=== PATIENT | male | born 1970 | race African-American/Black ===

== ENCOUNTER 2016-05-20 08:42 | Inpatient (IN) | payer OTHER ==
[~2016-05-20] VITALS: Ht 172.7 cm; Wt 85.1 kg
--- NOTE | 2016-05-20 08:48 | EMERGENCY ROOM VISIT NOTE ---
History Report prepared by Ayshaibe: Maggi Mendosa Under the Supervision of: Dr. Mello Hand M.D. First contact with patient: 08:43 Stated Complaint: CHEST PAIN History of Present Illness The patient is a 46 year old male who presents to the Emergency Room with complaints of persistent chest pain that started around 0430 this morning. He was brought to the ED via ALS from [facility], where he currently resides. The patient went to the [facility] around 0700 this morning and EKG changes were seen, so EMS was called. He rates his discomfort as a 7/10 and describes as feeling "crushing" in nature. The pain does not radiate anywhere. He was given 324 mg Aspirin and 2 sprays of Nitroglycerin in the field. He reports they have provided some relief. He denies any difficulty breathing or pain or swelling in his extremities. The patient has a history of a prior OH that occurred in 1993, and a previous DVT. No intervention was required for the OH. He denies any recent increased physical activity or exertion and reports he is non-smoker. Source of History: patient, EMS Onset: 0430 this morning Position: chest Symptom Intensity: 7/10 Quality: other ("crushing") Timing: other (persistent) Modifying Factors (Relieving): other (Aspirin, Nitroglycerin) Associated Symptoms: No SOB Review of Systems See HPI for pertinent positives & negatives. A total of 10 systems reviewed and were otherwise negative. Past Medical & Surgical Medical Problems: (1) Chest pain (2) DVT (deep venous thrombosis) (3) Hypertensive emergency (4) Myocardial infarction (5) Unstable angina Social History Alcohol Use: none Drug Use: none Marital Status: single Housing Status: other Occupation Status: unemployed Current/Historical Medications Scheduled Aspirin (Aspirin Ec), 81 MG PO QAM Citalopram Hydrobromide (Celexa), 20 MG PO HS Divalproex Sodium (Depakote Delay Rel), 500 MG PO BID Lisinopril (Prinivil), 40 MG PO QAM Trazodone Hcl (Trazodone), 100 MG PO HS Allergies Coded Allergies: No Known Allergies (Unverified , 05/20/16) Physical Exam Vital Signs Date Time Temp Pulse Resp B/P Pulse Ox O2 Delivery O2 Flow Rate FiO2 05/20/16 14:44 77 20 124/92 96 Room Air 1/21/17 13:08 66 18 154/77 05/20/16 12:44 62 20 145/111 98 Room Air 05/20/16 11:31 60 20 140/99 98 Room Air 05/20/16 11:08 56 18 162/104 97 Room Air 05/20/16 11:00 67 16 123/95 96 Room Air 05/20/16 10:57 62 18 148/104 98 Room Air 05/20/16 10:27 70 16 151/92 96 Room Air 05/20/16 09:48 76 18 178/118 96 Room Air 05/20/16 09:18 61 05/20/16 09:18 71 16 168/116 96 Room Air 05/20/16 08:47 99 05/20/16 08:47 36.9 92 18 192/129 100 Room Air 05/20/16 08:47 67 18 192/129 98 Room Air Physical Exam GENERAL: Patient is well appearing and appears to be in mild distress. HEENT: No acute trauma, normocephalic atraumatic, mucous membranes moist, no nasal congestion, no scleral icterus. NECK: No stridor, no adenopathy, no meningismus, trachea is midline. LUNGS: No dyspnea. Clear to auscultation and equal bilaterally. No wheeze, no rhonchi. HEART: Regular rate and rhythm. No murmurs, rubs, gallops appreciated. ABDOMEN: Soft, nontender, bowel sounds positive, no masses appreciated, no peritonitis. BACK: No midline tenderness, no CVA tenderness EXTREMITIES: Normal motion all extremities, no cyanosis, no edema. NEUROLOGIC: Alert and oriented, no acute motor or sensory deficits, no focal weakness, cranial nerves grossly intact. SKIN: No rash, no jaundice, no diaphoresis. Medical Decision & Procedures ER Provider Diagnostic Interpretation: This X-Ray was reviewed and interpreted by myself and the radiologist. SINGLE VIEW CHEST IMPRESSION: No acute cardiopulmonary abnormality. Electronically signed by: Esteban Reaves M.D. 05/20/2016 11:26 AM Laboratory Results 05/20/16 10:30 Red Blood Count 5.29, Mean Corpuscular Volume 88.5, Mean Corpuscular Hemoglobin 30.4, Mean Corpuscular Hemoglobin Concent 34.4, Mean Platelet Volume 12.4, Neutrophils (%) (Auto) 40.6, Lymphocytes (%) (Auto) 40.5, Monocytes (%) (Auto) 17.8, Eosinophils (%) (Auto) 1.1, Basophils (%) (Auto) 0.0, Neutrophils # (Auto ) 1.41, Lymphocytes # (Auto) 1.41, Monocytes # (Auto) 0.62, Eosinophils # (Auto ) 0.04, Basophils # (Auto) 0.00 05/20/16 09:25 05/20/16 10:30 Test 05/20/16 08:50 05/20/16 09:25 05/20/16 10:30 05/20/16 12:13 Creatine Kinase MB Ratio (0-3.0) Anion Gap 5.0 mmol/L (3-11) Est Creatinine Clear Calc Drug Dose 117.8 ml/min Estimated GFR () 121.4 Estimated GFR (Non- 104.8 BUN/Creatinine Ratio 9.9 (10-20) Calcium Level 9.0 mg/dl (8.5-10.1) Creatine Kinase MB 4.3 ng/ml (0.5-3.6) Troponin I < 0.015 ng/ml (0-0.045) White Blood Count 3.48 K/uL (4.8-10.8) Red Blood Count 5.29 M/uL (4.7-6.1) Hemoglobin 16.1 g/dL (14.0-18.0) Hematocrit 46.8 % (42-52) Mean Corpuscular Volume 88.5 fL (80-100) Mean Corpuscular Hemoglobin 30.4 pg (25-34) Mean Corpuscular Hemoglobin Concent 34.4 g/dl (32-36) Platelet Count 144 K/uL (130-400) Mean Platelet Volume 12.4 fL (7.4-10.4) Neutrophils (%) (Auto) 40.6 % Lymphocytes (%) (Auto) 40.5 % Monocytes (%) (Auto) 17.8 % Eosinophils (%) (Auto) 1.1 % Basophils (%) (Auto) 0.0 % Neutrophils # (Auto) 1.41 K/uL (1.4-6.5) Lymphocytes # (Auto) 1.41 K/uL (1.2-3.4) Monocytes # (Auto) 0.62 K/uL (0.11-0.59) Eosinophils # (Auto) 0.04 K/uL (0-0.5) Basophils # (Auto) 0.00 K/uL (0-0.2) RDW Standard Deviation 40.1 fL (36.4-46.3) RDW Coefficient of Variation 12.5 % (11.5-14.5) Immature Granulocyte % (Auto) 0.0 % Immature Granulocyte # (Auto) 0.00 K/uL (0.00-0.02) Prothrombin Time 12.0 SECONDS (9.0-12.0) Prothromb Time International Ratio 1.1 (0.9-1.1) Activated Partial Thromboplast Time 25.5 SECONDS (21.0-31.0) Partial Thromboplastin Ratio 1.0 D-Dimer 340 ug/L FEU (0-500) Total Creatine Kinase 492 U/L (39-308) Valproic Acid (Depakene) Level 38 mcg/ml (50-100) Laboratory results as reviewed by me. Medications Administered Medications (Trade) Dose Ordered Sig/Maegan Route Start Time Stop Time Status Last Admin Dose Admin Fentanyl Citrate 100 mcg 100 mcg NOW STAT IV 05/20/16 08:50 05/20/16 08:53 DC 05/20/16 10:41 100 MCG Sodium Chloride (Nss 1000ml) 1,000 ml @ 75 mls/hr [id number] STAT IV 05/20/16 08:50 05/20/16 22:09 05/20/16 10:58 75 MLS/HR Nitroglycerin (Nitrostat Tab) 0.4 mg Q5M PRN SL 05/20/16 09:00 06/19/16 08:59 05/20/16 09:29 0.4 MG Clonidine HCl (Catapres Tab) 0.2 mg NOW ONCE PO 05/20/16 10:30 05/20/16 10:31 DC 05/20/16 10:40 0.2 MG Nitroglycerin (Nitrostat Tab) 0.4 mg NOW STAT SL 05/20/16 12:50 05/20/16 13:05 DC 05/20/16 13:07 0.4 MG Heparin Sodium/ Dextrose (Heparin 25,000 Unit/500ml D5W) 25,000 unit STK-MED ONCE .ROUTE 05/20/16 13:47 05/20/16 13:49 DC 05/20/16 14:22 25,000 UNIT Heparin Sodium (Porcine) (Heparin Sq 5000 Unit/0.5ml) 5,000 unit STK-MED ONCE .ROUTE 05/20/16 13:48 05/20/16 13:49 DC 05/20/16 14:19 5,000 UNIT ECG Indication: chest pain Rate (beats per minute): 59 Rhythm: normal sinus (normal sinus rhythm) Findings: 1st degree AV block, T-wave inversion (Anterolateral), ST elevation ( mild ST elevation in V2, but poor baseline), no ectopy Comparison ECG Date: Anteriolateral T-wave inversions are still seen, and were previously seen on EKG from October 21, 2015. Does not meet STEMI criteria Change: 2nd EKG on 05/20/2016: Normal Sinus Rhythm, rate of 62, ST elevation in V1 continues, as well as T-wave inversions. Similar to previous EKG's and the patient still does not meet STEMI criteria. ED Course 0837: I discussed the patients case with [place]. Ramirez, [facility] [place] We discussed that the patient does not meet STEMI criteria. 0843: The patient was evaluated in room B1. A complete history and physical exam was performed. 0850: NSS 1000 ml @ 75 mls/hr IV, Fentanyl Citrate 100 mcg IV. 0900: Nitroglycerin 0.4 mg SL. 0905: I reassessed the patient. Lab is working on getting a secure IV. The patients chest pain is improving after receiving the Nitroglycerin. 0920: We attempted multiple peripheral IVs with ultrasound guidance without success. I discussed a central line versus a PICC line with the IV team. IV team feels they can place a PICC line. 0930: I reevaluated the patient. His pain is much improved. 1005: I reassessed the patient. IV team is placing a PICC line in the patient. He is feeling well. 1022: I reassessed the patient. He is feeling well. We will administer another Nitroglycerin as his blood pressure continues to elevate. 1030: Clonidine 0.2 mg PO. 1124: I discussed the patient's case with Dr. Valencia, [facility] Hospitalist. The patient will be further evaluated. Medical Decision Differential: Cardiac Ischemia (STEMI, NSTEMI, Unstable Angina, etc), Aortic Dissection, Arrhythmia, Pulmonary Embolism, Pneumonia, Pneumothorax, MSK, Infectious, Pericarditis/Myocarditis, Esophageal Rupture, Gastrointestinal, amongst other pathologies entertained. 46 yr old male arrives from care home with substernal pressure like chest pain. Notes history of OH 10 yrs ago though no stents nor real further info on this. Initial EKG with V2 mild ST elevation though does not meet STEMI criteria, as well as lateral T wave inversions. Alf sent over old EKGs from this summer which are essentially similar. Patient impossible to get peripheral line on, including difficulty even getting blood work. As BP quite elevated he was given several SLNTG with resolution of CP as well as improvement in BP. Clonidine given for further BP treatment. Patient with repeat EKG without changes. IV team at bedside who feel they can obtain PICC line which given the need for cardiac rule out and possibly further IV anti-hypertensives seems reasonable, especially given I feel large central line would be further risk to patient for cardiac rule out. Patient feeling better and in no distress. Initial Trop negative. Did have history years ago of DVT though no current blood thinners. With no further symptoms nor shob I felt that Dimer reasonable and with negative I do not feel he needs CT PE study. Consults Time Called: 0835 Consulting Physician: Dr. Ramirez [facility] [place] Returned Call: [phone] I discussed the patients case with Dr. Ramirez [facility] [place]. We discussed that the patient does not meet STEMI criteria. Additional Consults: Time Called: 1120 Consulted Physician: Dr. Valencia [facility] Hospitalist Returned Call: 1120 Additional Comments: I discussed the patient's case with Dr. Valencia, [facility] Hospitalist. The patient will be further evaluated. Impression Primary Impression: Hypertensive urgency Additional Impression: Substernal chest pain Scribe Attestation The scribe's documentation has been prepared under my direction and personally reviewed by me in its entirety. I confirm that the note above accurately reflects all work, treatment, procedures, and medical decision making performed by me. Departure Information Dispostion Being Evaluated By Hospitalist Problem Qualifiers
[2016-05-20] MEDS ORDERED: SODIUM CHLORIDE 0.9% 1000ML 1,000 ML IV STA (08:50)
[2016-05-20] MEDS ORDERED: FENTANYL CITRATE INJ 50 MCG/1 ML 2 ML VIAL IV STA (08:50)
[2016-05-20] MEDS ORDERED: NITROGLYCERIN 0.4 MG SL PER TAB CHARGE SL PRN (09:00)
[2016-05-20] MEDS ORDERED: TRAZ50TA35 PO (09:12)
[2016-05-20] MEDS ORDERED: ASPI81TA28 PO (09:12)
[2016-05-20] MEDS ORDERED: DIVA500T5 PO (09:12)
[2016-05-20] MEDS ORDERED: LISI40TA PO (09:12)
[2016-05-20] MEDS ORDERED: CITA20TA9 PO (09:12)
[2016-05-20 10:00] LABS: BLOOD UREA NITROGEN 8 mg/dl (7-18); BUN/CREATININE RATIO 9.9 (10-20); CARBON DIOXIDE 29 mmol/L (21-32); CHLORIDE 105 mmol/L (98-107); CREATININE 0.83 mg/dl (0.60-1.40); GLUCOSE 93 mg/dl (70-99); SODIUM 139 mmol/L (136-145)
[2016-05-20] MEDS ORDERED: CLONIDINE HCL 0.1 MG TAB PO ONE (10:30)
[2016-05-20 11:07] LABS: COMPLETE YES; EOS % 1.1 %; HEMATOCRIT 46.8 % (42-52); LYMPH % 40.5 %; LYMPH ABS # 1.41 K/uL (1.2-3.4); MEAN CELL VOLUME 88.5 fL (80-100); MEAN CORPUSCULAR HEMOGLOBIN 30.4 pg (25-34); MEAN CORPUSCULAR HGB CONC 34.4 g/dl (32-36); MEAN PLATELET VOLUME 12.4 fL (7.4-10.4); MONO % 17.8 %; NEUT % 40.6 %; PLATELET COUNT 144 K/uL (130-400); RED BLOOD COUNT 5.29 M/uL (4.7-6.1); WHITE BLOOD COUNT 3.48 K/uL (4.8-10.8)
[2016-05-20 11:09] LABS: POTASSIUM 3.9 mmol/L (3.5-5.1)
--- NOTE | 2016-05-20 11:28 | DIAGNOSTIC IMAGING REPORT ---
SINGLE VIEW CHEST CLINICAL HISTORY: Atypical chest pain. FINDINGS: An AP, portable, upright chest radiograph is obtained. No prior studies are available for comparison at the time of dictation. The examination is degraded by portable technique and mild motion artifact. A left PICC line is in place. The tip projects over the cavoatrial junction. The heart is top normal for projection. The mediastinal contour is within normal limits. The lungs and pleural spaces are clear. No pneumothorax is seen. The bony thorax is grossly intact. Surgical clips project over the right axilla. IMPRESSION: No acute cardiopulmonary abnormality. Electronically signed by: Esteban Reaves M.D. 05/20/2016 11:26 AM Dictated Date/Time: 05/20/2016 11:25 AM
[2016-05-20] MEDS ORDERED: NITROGLYCERIN 0.4 MG SL PER TAB CHARGE SL STA (12:50)
[2016-05-20] MEDS ORDERED: NITROGLYCERIN OINT 2% 1GM PACKET EXT SCH (13:00)
[2016-05-20] MEDS ORDERED: POLYETHYLENE (MIRALAX) 17 GM PACK PO PRN (13:30)
[2016-05-20] MEDS ORDERED: ONDANSETRON INJ 2 MG/ML 2 ML VIAL IV PRN (13:30)
[2016-05-20] MEDS ORDERED: MAGNESIUM HYDROXIDE SUSP 30 ML UDC PO PRN (13:30)
[2016-05-20] MEDS ORDERED: ALUMINUM/MAGNESIUM/SIMETH (MAALOX MAX) 30 ML UDC PO PRN (13:30)
[2016-05-20] MEDS ORDERED: ACETAMINOPHEN 325 MG TAB PO PRN (13:30)
[2016-05-20] MEDS ORDERED: HEPARIN 25000 UNIT/500 ML D5W ONE (13:47)
[2016-05-20] MEDS ORDERED: HEPARIN SOD 5000 UNIT/0.5 ML CARP ONE (13:48)
[2016-05-20] MEDS ORDERED: NITROGLYCERIN OINT 2% 1GM PACKET EXT PRN (14:00)
[2016-05-20] MEDS ORDERED: HEPARIN BOLUS IV ONE (14:00)
[2016-05-20] MEDS ORDERED: ATORVASTATIN 40 MG TAB PO ONE (14:00)
[2016-05-20 14:10] LABS: INR 1.1 (0.9-1.1)
[2016-05-20] MEDS ORDERED: HydrALAZINE HCL 20 MG/ML VIAL IV. PRN (14:15)
[2016-05-20] MEDS: HEPARIN 25,000 UNIT/500ML D5W 500 ML IV PRN (14:23)
--- NOTE | 2016-05-20 14:37 | History and Physical ---
History & Physical Date & Time of Service: May 20, 2016 at 13:44 Chief Complaint: Chest Pain Primary Care Physician: Alesia ORDONEZ History of Present Illness Source: patient, hospital records, other ([facility] records) This is a 46 y/o male with a history of CT in 1993, HTN, seizures, anxiety/ depression, insomnia, and h/o LLE DVT in 1991 who presented to the ED on 05/20 with chest pain. The patient is an inmate at [facility]. He states that he woke up around 4:30 this morning with a sharp, 8/10 chest pain located on the left side of his chest. The pain did not radiate anywhere. He did notice tingling in his left hand, and he complains of fatigue but denies any other associated symptoms. The patient was evaluated at the [facility] which revealed EKG changes , prompting him to be taken to the ED. The patient received ASA 324 mg PO and 2 sprays of nitro prior to arrival, which did provide some relief. He currently rates his pain a 5/10. The patient denies fevers, chills, sweats, palpitations, claudication, wheezing, shortness of breath, nausea, vomiting, abdominal pain, dysuria, hematuria, urinary retention, paralysis, and weakness. Past Medical/Surgical History HTN Anxiety/depression Insomnia H/o CT 1993 H/o LLE DVT 1991 Family History Asthma Diabetes mellitus Heart disease Social History Smoking Status: Never Smoker Smokeless Tobacco Use: No Alcohol Use: none Drug Use: none Marital Status: Housing status: other ([facility]) Occupational Status: other (inmate) Allergies Coded Allergies: No Known Allergies (Unverified , 05/20/16) Home Medications Scheduled Aspirin (Aspirin Ec), 81 MG PO QAM Citalopram Hydrobromide (Celexa), 20 MG PO HS Divalproex Sodium (Depakote Delay Rel), 500 MG PO BID Lisinopril (Prinivil), 40 MG PO QAM Trazodone Hcl (Trazodone), 100 MG PO HS Review of Systems Constitutional: + fatigue, No chills, No fever, No sweats, No weakness Eyes: No diplopia, No eye pain, No worsening of vision ENT: No hearing loss, No sore throat, No trouble swallowing Respiratory: + cough (mild, non-productive), No shortness of breath, No wheezing Cardiovascular: + chest pain (initially 8/10, improved with nitro, currently pain free), No claudication, No palpitations Abdomen: No nausea, No pain, No vomiting Musculoskeletal: No joint pain, No muscle pain, No swelling Genitourinary - Male: No dysuria, No hematuria, No urinary retention Neurologic: + numbness/tingling (L hand, resolved), No paralysis, No weakness Integumentary: No color change, No itch, No rash Physical Exam Vital Signs Date Time Temp Pulse Resp B/P Pulse Ox O2 Delivery O2 Flow Rate FiO2 05/20/16 13:08 66 18 154/77 05/20/16 12:44 62 20 145/111 98 Room Air 05/20/16 11:31 60 20 140/99 98 Room Air 05/20/16 11:08 56 18 162/104 97 Room Air 05/20/16 11:00 67 16 123/95 96 Room Air 05/20/16 10:57 62 18 148/104 98 Room Air 05/20/16 10:27 70 16 151/92 96 Room Air 05/20/16 09:48 76 18 178/118 96 Room Air 05/20/16 09:18 61 05/20/16 09:18 71 16 168/116 96 Room Air 05/20/16 08:47 99 05/20/16 08:47 36.9 92 18 192/129 100 Room Air 05/20/16 08:47 67 18 192/129 98 Room Air General Appearance: WD/WN, no apparent distress Head: normocephalic, atraumatic Eyes: normal inspection, PERRL, EOMI, + pertinent finding (sclerae bloodshot) ENT: normal ENT inspection, hearing grossly normal, pharynx normal Neck: supple, no JVD, trachea midline Respiratory/Chest: lungs clear, normal breath sounds, no respiratory distress Cardiovascular: regular rate, rhythm, no gallop, no murmur Abdomen/GI: normal bowel sounds, non tender, soft Extremities/Musculoskelatal: normal inspection, no calf tenderness, no pedal edema Neurologic/Psych: alert, normal mood/affect, oriented x 3 Skin: normal color, warm/dry, no rash Diagnostics Laboratory Results Results Past 24 Hours Test 05/20/16 08:50 05/20/16 09:25 05/20/16 10:30 05/20/16 12:13 Range/Units Creatine Kinase MB Ratio 0-3.0 D-Dimer 340 0-500 ug/L FEU Sodium Level 139 136-145 mmol/L Potassium Level 3.9 3.5-5.1 mmol/L Chloride Level 105 98-107 mmol/L Carbon Dioxide Level 29 21-32 mmol/L Anion Gap 5.0 3-11 mmol/L Blood Urea Nitrogen 8 7-18 mg/dl Creatinine 0.83 0.60-1.40 mg/dl Est Creatinine Clear Calc Drug Dose 117.8 ml/min Estimated GFR () 121.4 Estimated GFR (Non- 104.8 BUN/Creatinine Ratio 9.9 10-20 Random Glucose 93 70-99 mg/dl Calcium Level 9.0 8.5-10.1 mg/dl Total Creatine Kinase 492 39-308 U/L Creatine Kinase MB 4.3 0.5-3.6 ng/ml Troponin I < 0.015 0-0.045 ng/ml White Blood Count 3.48 4.8-10.8 K/uL Red Blood Count 5.29 4.7-6.1 M/uL Hemoglobin 16.1 14.0-18.0 g/dL Hematocrit 46.8 42-52 % Mean Corpuscular Volume 88.5 80-100 fL Mean Corpuscular Hemoglobin 30.4 25-34 pg Mean Corpuscular Hemoglobin Concent 34.4 32-36 g/dl Platelet Count 144 130-400 K/uL Mean Platelet Volume 12.4 7.4-10.4 fL Neutrophils (%) (Auto) 40.6 % Lymphocytes (%) (Auto) 40.5 % Monocytes (%) (Auto) 17.8 % Eosinophils (%) (Auto) 1.1 % Basophils (%) (Auto) 0.0 % Neutrophils # (Auto) 1.41 1.4-6.5 K/uL Lymphocytes # (Auto) 1.41 1.2-3.4 K/uL Monocytes # (Auto) 0.62 0.11-0.59 K/uL Eosinophils # (Auto) 0.04 0-0.5 K/uL Basophils # (Auto) 0.00 0-0.2 K/uL RDW Standard Deviation 40.1 36.4-46.3 fL RDW Coefficient of Variation 12.5 11.5-14.5 % Immature Granulocyte % (Auto) 0.0 % Immature Granulocyte # (Auto) 0.00 0.00-0.02 K/uL Valproic Acid (Depakene) Level 38 50-100 mcg/ml Test 05/20/16 13:24 Range/Units Diagnostic Radiology Reviewed the following studies and agree with interpretation as follows: Patient Name: NEFTALY MCKEON [id number] Unit Number: [id number] Dictated: 05/20/161124 Transcribed: 05/20/161124 EV Printed Date/Time: [~ rep prt dt]/[~ rep prt tm] [~ rep ct labl] - [~ rep ct ivnm] [facility] [place] [address] Dictated: 05/20/161124 Transcribed: 05/20/161124 EV Printed Date/Time: [~ rep prt dt]/[~ rep prt tm] [~ rep ct labl] - [~ rep ct ivnm] Patient: NEFTALY MCKEON [id number] Address1: [facility] Rec: [id number] Address2: Acct ID: [id number] [facility] Zip: [place] [address] Date: 1970 Sex: M Room/Bed: Ref Phy: [facility] SC: IESHA Att Phy: Report #: [id number] Cady Phy: [facility] Test: [id number] Admit Phy: Environmental Planner: DEANNE Interpreting Phy: Esteban Reaves M.D. Diagnosis: CHEST PAIN Ordering Phy: Mello Hand M.D. Service Date: 05/20/16 Admit Date: 05/20/16 MNE: [id number] CONF: DICTATED BY: Esteban Reaves M.D.]] CC: Mello Hand M.D. [facility] Endcc: [~ rep ct add3]] SINGLE VIEW CHEST CLINICAL HISTORY: Atypical chest pain. FINDINGS: An AP, portable, upright chest radiograph is obtained. No prior studies are available for comparison at the time of dictation. The examination is degraded by portable technique and mild motion artifact. A left PICC line is in place. The tip projects over the cavoatrial junction. The heart is top normal for projection. The mediastinal contour is within normal limits. The lungs and pleural spaces are clear. No pneumothorax is seen. The bony thorax is grossly intact. Surgical clips project over the right axilla. IMPRESSION: No acute cardiopulmonary abnormality. Electronically signed by: Esteban Reaves M.D. 05/20/2016 11:26 AM Dictated Date/Time: 05/20/2016 11:25 AM The status of this report is Signed. Draft = Not yet reviewed or approved by Radiologist. Signed = Reviewed and approved by Radiologist. <AttendingPhy></AttendingPhy> <FamilyPhy>Alesia ORDONEZ</FamilyPhy> <PrimaryPhy> Alesia ORDONEZ</PrimaryPhy> <UnitNumber>[id number]</UnitNumber> <VisitNumber> [id number]</VisitNumber> <PatientName>NEFTALY MCKEON [id number]</PatientName> < DateOfBirth>1970</DateOfBirth> <Location>C.EDB</Location> <ServiceDate></ServiceDate> <MNE>ESINDI</MNE> <OrderingPhy>Mello Hand M.D.</ OrderingPhy> <OrderingPhyMNE>f rep ord dr clancy</OrderingPhyMNE> <DictatingPhyMNE> f rep dict dr clancy</DictatingPhyMNE> <CCListMNE>f rep ct julieth</CCListMNE> < AdmittingPhyMNE>f pt admit dr clancy</AdmittingPhyMNE> <AttendingPhyMNE>f pt attend dr clancy</AttendingPhyMNE> <ConsultingPhyMNE>f pt consult dr clancy</ConsultingPhyMNE> <FamilyPhyMNE>f pt fam dr clancy</FamilyPhyMNE> <OtherPhyMNE>f pt other dr clancy</OtherPhyMNE> < PrimaryPhyMNE>f pt prim care dr clancy</PrimaryPhyMNE> <ReferringPhyMNE>f pt referring dr clancy</ReferringPhyMNE> EKG Reviewed EKG and agree with interpretation as follows: EKG 08:44--59 bpm, sinus bradycardia with 1st degree AV block, anterolateral and inferior T wave inversions, mild ST elevations V1 and V2. Does not meet STEMI criteria EKG 10:51--62 bpm, sinus rhythm with 1st degree AV block, anterolateral and inferior T wave inversions, ST elevation in V2. Does not meet STEMI criteria EKG 13:24--58 bpm, sinus bradycardia, anterolateral and inferior T wave inversions Impression Assessment and Plan 46 y/o male with a history of CT in 1993, HTN, seizures, anxiety/depression, insomnia, and h/o LLE DVT in 1991 who presented to the ED on 05/20 with chest pain. C/o 8/10 sharp left chest pain and left hand tingling. Improved to 5/10 with ASA and nitro. CXR no acute disease. EKGs show T wave inversions in inferior, anterior and lateral leads, which are worse or changed from previous EKG in September 2015. First troponin negative but CK and CKMB elevated. ED physician consulted with Dr. Ramirez of cardiology and agreed that pt does not meet criteria for STEMI. BP upon arrival 192/129. Responded well to PO clonidine in ER. Unstable angina, h/o CT in 1993--Pt states he thinks he had a cardiac cath in 1995 at [facility]. Will request medical records. -Admit to telemetry -Cardiology consulted, appreciate recs -Echocardiogram ordered -Repeat EKG now shows no ST elevations. T wave inversions unchanged. -POC troponin now stat negative at 0.02 -Nitroglycerin 0.4 mg PO SL x 1 stat. Pt responded well, now pain free. -Nitropaste 1 inch EXT q6h scheduled -Low dose heparin drip with bolus -PT/INR, PTT now -Start Lipitor 40 mg PO qam, 1 dose now -Continue ASA 81 mg PO qd -Pt has been bradycardic, no beta ria at this time -Trend cardiac enzymes q8h x 3 -Repeat EKG q am and with chest pain -Fasting lipid panel tomorrow am Hypertensive emergency--BP 192/129 upon arrival with chest pain -Given clonidine 0.2 mg PO x 1 in ED, last recorded BP 154/77 -Continue lisinopril 40 mg PO qd -Cover with hydralazine 10 mg IV q6h prn SBP >180 Seizures--stable. Pt. states he hasn't had a seizure in 10 years -Valproic acid level low at 38, however pt has been stable and this may be his normal level -Continue Depakote 500 mg PO BID Anxiety/depression -Continue Celexa 20 mg PO qd Insomnia -Continue trazodone 100 mg PO qhs GI prophylaxis -Maalox Max 15 mL PO q4h prn dyspepsia -Milk of magnesia 30 mL PO q6h prn constipation -Miralax 17 gm PO qd prn constipation -Zofran 4 mg IV q6h prn nausea DVT prophylaxis -Heparin drip -EILEEN hall and SCDs Code Status -Level I, FULL RESUSCITATION STATUS Level of Care Telemetry Resuscitation Status FULL RESUSCITATION VTE Prophylaxis VTE Risk Assessment Done? Y/N: Yes Risk Level: High Given or contraindicated: Other Anticoagulation (low dose heparin drip), T.E.D. Stockings, SCD's Note Attending Admission Note & Attestation: Pt seen/examined, chart reviewed, and care plan d/w NACHO Allred. I agree with the kinney components of her admission documentation. 46yo male with intellectual disability, h/o CAD with ?CT in the mid - dx at [facility], HTN, hyperlipidemia, seizures - who presented with acute onset of left sided chest pain this am that radiated to the left arm. Seen initially in the infirmary at the senior living in which he resides; EKG showed ST changes and thus he was given asa/nitro. Sent to [facility]. Had ongoing pain upon arrival here and was given additional SL nitro x 1 with partial relief. BP markedly elevated at presentation and was medicated for such. Just prior to my assessment he had had continued pain and was given another SL nitro; this finally relieved his pain. Pt reports his symptoms remind him of when he was hospitalized in the mid with cardiac problems. He denies any recent exertional chest pain or sob at the senior living. PMH, PSH, allergies, meds, sochx, famhx, ros - reviewed vitals - BPs improving HR, o2 sats, RR nl gen - AA male in NAD neck - no JVD heart - RRR, s1, s2 chest - no reproducible chest wall pain lungs - CTA b/l abd - soft, NT, ND, BS+ ext - no edema labs - initial CPK mildly elevated troponin negative CBC, BMP nl 1st EKG - my reading - NSR, T wave inversions V3-V6; also with ST segment J- point elevation V2 only; ST segment depression 1 and AVL 2nd EKG - my reading - continued V3-V6 T wave inversions A/P: 1. ? history of CAD, now with chest pain 2. ? unstable angina 3. hypertensive emergency 4. abnormal EKGs 5. mildly elevated CPK 6. h/o DVT but doubt his symptoms are due to new PE * in light of his history, symptoms, EKG findings - will Rx as unstable angina with heparin drip, topical nitrates, etc * echo to assess wall motion, EF, etc * cardiology consultation * cont asa, SANDEEP, statin; lipids in AM; HR already upper 50s and not sure he would tolerate even low-dose beta ria * serial cardiac enzymes * resume all outpatient BP meds for HTN * telemetry * if chest pain recurs in context of +troponins would likely need urgent cath total time 70 minutes Raz Rodriguez MD
[2016-05-20 16:32] VITALS: BP 120/85; PULSE 60; TEMP 36.9; O2SAT 97
[2016-05-20 16:44] VITALS: Ht 172.7 cm; Wt 85.1 kg
[2016-05-20] MEDS: NITROGLYCERIN OINT 2% 1GM PACKET EXT SCH ×2 (17:17→23:54)
[2016-05-20 18:36] LABS: CKMB/CK RATIO 0.3 (0-3.0)
[2016-05-20 19:33] VITALS: BP 143/64; PULSE 65; TEMP 36.8; O2SAT 95
[2016-05-20] MEDS: TRAZODONE HCL 100 MG TAB PO SCH (21:09)
[2016-05-20] MEDS: CITALOPRAM 20 MG TAB PO SCH (21:09)
[2016-05-20] MEDS: DIVALPROEX SODIUM 500 MG DELAY RELEASE TAB PO SCH (21:10)
[2016-05-20 21:50] LABS: PARTIAL THROMBOPLASTIN RATIO 2.6
[2016-05-20 23:18] VITALS: BP 107/62; PULSE 77; TEMP 36.6; O2SAT 92
[2016-05-21] VITALS (8 sets, daily range): BP systolic 111–150; BP diastolic 78–95; PULSE 55–94; TEMP 36.6–37; O2SAT 94–97
[2016-05-21 02:43] LABS: CKMB/CK RATIO 0.3 (0-3.0)
[2016-05-21] MEDS: NITROGLYCERIN OINT 2% 1GM PACKET EXT SCH ×4 (05:53→23:39)
[2016-05-21] MEDS ORDERED: MoRPHine SULFATE 2 MG/ML CARP IV STA (06:06)
[2016-05-21] MEDS ORDERED: MoRPHine SULFATE 2 MG/ML CARP ONE (06:07)
[2016-05-21 06:52] LABS: HEMATOCRIT 43.6 % (42-52); MEAN CELL VOLUME 89.7 fL (80-100); MEAN CORPUSCULAR HEMOGLOBIN 31.1 pg (25-34); MEAN CORPUSCULAR HGB CONC 34.6 g/dl (32-36); MEAN PLATELET VOLUME 12.7 fL (7.4-10.4); PLATELET COUNT 136 K/uL (130-400); RED BLOOD COUNT 4.86 M/uL (4.7-6.1)
[2016-05-21 07:07] LABS: PARTIAL THROMBOPLASTIN RATIO 2.2
[2016-05-21 07:15] LABS: BUN/CREATININE RATIO 10.9 (10-20); CALCIUM 8.4 mg/dl (8.5-10.1); CREATININE 1.1 mg/dl (0.60-1.40); POTASSIUM 3.9 mmol/L (3.5-5.1)
[2016-05-21] MEDS: LISINOPRIL 40 MG TAB PO SCH (08:07)
[2016-05-21] MEDS: DIVALPROEX SODIUM 500 MG DELAY RELEASE TAB PO SCH ×2 (08:07→20:56)
[2016-05-21] MEDS: ASPIRIN 81 MG ECTAB PO SCH (08:08)
[2016-05-21] MEDS ORDERED: ATORVASTATIN 40 MG TAB PO SCH ×2 (09:00)
--- NOTE | 2016-05-21 12:57 | ECHOCARDIOGRAM REPORT ---
*NOTICE TO RECEIVING LIBERTARIAN AGENCY This information is strictly Confidential and protected under [place] law. [place] law prohibits you from making any further disclosure of this information unless further disclosure is expressly permitted by the written consent of the person to whom it pertains or is authorized by law. A general authorization for the release of medical or other information is not sufficient for this purpose. Hospital accepts no responsibility if the information is made available to any other person, INCLUDING THE PATIENT. Interpretation Summary * Name: NEFTALY MCKEON [id number] Study Date: 05/21/2016 09:22 AM BP: 138/78 mmHg * Patient Location: [facility] HR: 67 * : 1970 (M/d/yyyy) Gender: Male Height: 68 in * Age: 46 yrs Ethnicity: AA Weight: 190 lb * Ordering Physician: Inessa Allred * Referring Physician: Alesia ORDONEZ * Performed By: Minoo Randhawa * * Reason For Study: CHEST PAIN, EKG CHANGES * BSA: 2.0 m2 * -- Conclusions -- * 1. Normal LV size. Moderate concentric LVH. * 2. Normal LV systolic function. LVEF 60-65%. No regional wall motion abnormalities. * 3. Normal RV size and function. * 4. No significant valvular pathology. * 5. Grade 1 diastolic dysfunction. * 6. No prior studies for comparison. Procedure Details * A complete two-dimensional transthoracic echocardiogram was performed (2D, M-mode, Doppler and color flow Doppler). Left Ventricle * The left ventricle is grossly normal size. * There is moderate concentric left ventricular hypertrophy. * Ejection Fraction = 60-65%. Right Ventricle * The right ventricle is grossly normal size. * The right ventricular systolic function is normal. Atria * The left atrial size is normal. * Normal pulmonary vein inflow * Right atrial size is normal. * No ASD detected; PFO is not assessed. Mitral Valve * The mitral valve is grossly normal. * The mitral valve leaflets appear thickened, but open well. * There is no mitral valve stenosis. * There is trace mitral regurgitation. Tricuspid Valve * The tricuspid valve is not well visualized, but is grossly normal. * No significant tricuspid stenosis. * There is trace tricuspid regurgitation. Aortic Valve * The aortic valve opens well. * The aortic valve is trileaflet. * No hemodynamically significant valvular aortic stenosis. * There is no significant aortic regurgitation. Pulmonic Valve * The pulmonic valve is not well seen, but is grossly normal. * Pulmonic stenosis is absent. * Mild pulmonic valvular regurgitation. Great Vessels * The aortic root and proximal ascending aorta are normal sized. * No Doppler or imaging evidence of an aortic coarctation. Pericardium/Pleural * There is no pericardial effusion. Great Vessels * Normal inferior vena cava diameter and respiratory variation suggests normal central venous pressure. Left Ventricular Diastolic Function * Grade I diastolic dysfunction, (abnormal relaxation pattern). MMode 2D Measurements and Calculations IVSd 1.3 cm IVSs 2.1 cm LVIDd 3.9 cm LVIDs 2.4 cm LVPWd 1.4 cm LVPWs 2.1 cm IVS/LVPW 0.96 FS 37.7 % EDV(Teich) 64.0 ml ESV(Teich) 20.1 ml EF(Teich) 68.5 % EDV(cubed) 57.2 ml ESV(cubed) 13.8 ml EF(cubed) 75.9 % % IVS thick 60.4 % % LVPW thick 51.9 % LV mass(C)d 188.9 grams LV mass(C)dI 94.5 grams/m\S\2 LV mass(C)s 232.5 grams LV mass(C)sI 116.3 grams/m\S\2 SV(Teich) 43.9 ml SI(Teich) 22.0 ml/m\S\2 SV(cubed) 43.4 ml SI(cubed) 21.7 ml/m\S\2 ACS 1.4 cm LA dimension 3.5 cm asc Aorta Diam 3.5 cm LVOT diam 1.8 cm LVOT area 2.5 cm\S\2 Doppler Measurements and Calculations MV E max larisa 62.6 cm/sec MV A max larisa 75.5 cm/sec MV E/A 0.83 MV dec time 0.23 sec LV V1 max PG 3.5 mmHg LV V1 mean PG 2.0 mmHg LV V1 max 93.0 cm/sec LV V1 mean 64.6 cm/sec LV V1 VTI 18.0 cm SV(LVOT) 44.9 ml SI(LVOT) 22.5 ml/m\S\2 PA V2 max 101.6 cm/sec PA max PG 4.9 mmHg PI end-d larisa 91.2 cm/sec
[2016-05-21] MEDS: HEPARIN 25,000 UNIT/500ML D5W 500 ML IV PRN (15:55)
[2016-05-21] MEDS ORDERED: KETOROLAC TROMETHAMINE 30 MG/ML VIAL IV STA (16:30)
[2016-05-21] MEDS ORDERED: OPTIRAY 320 IV PRN (18:30)
--- NOTE | 2016-05-21 18:49 | DIAGNOSTIC IMAGING REPORT ---
CHEST ONE VIEW PORTABLE CLINICAL HISTORY: Evaluate left PICC catheter. Atypical chest pain COMPARISON STUDY: 05/20/2016 FINDINGS: There is a left-sided PICC catheter which terminates within the superior vena cava. The cardiac and mediastinal contours remain stable. There is no failure. There is no focal pulmonary consolidation. There are minor left basilar atelectatic changes. Surgical clips project over the right chest wall and axillary region.[ IMPRESSION: 1. No active disease in the chest 2. The left-sided PICC catheter appears positioned within the superior vena cava Electronically signed by: Yakov Martínez M.D. 05/21/2016 6:47 PM Dictated Date/Time: 05/21/2016 6:46 PM
--- NOTE | 2016-05-21 19:42 | DIAGNOSTIC IMAGING REPORT ---
CT ANGIOGRAM OF THE CHEST, ABDOMEN, AND PELVIS CLINICAL HISTORY: Atypical chest and abdominal pain. Possible dissection. Hypertension. COMPARISON STUDY: No previous studies for comparison. TECHNIQUE: Before and following the IV administration of 119 mL of Optiray-320, CT angiogram of the chest, abdomen, and pelvis was performed from the thoracic inlet to the proximal femurs. Images are reviewed in the axial, sagittal, and coronal planes. IV contrast was administered without complication. Imaged portions of the thyroid gland are normal in appearance. MIP imaging was performed. CT DOSE: 1413.40 mGy.cm FINDINGS: CHEST: Thoracic aorta: The thoracic aorta is normal in course and caliber, noting standard 3-vessel arch anatomy. No aneurysm or dissection is seen. Pulmonary vasculature: The pulmonary trunk is normal in caliber. There are no filling defects in the main, lobar, or segmental pulmonary branches to suggest pulmonary embolus. HEART: The heart is normal in size and configuration, without pericardial effusion. Lungs and pleural spaces: There are no pleural effusions. There is respiratory motion artifact. There are mild dependent atelectatic changes. There is no focal pulmonary consolidation. Mediastinum: There is no mediastinal lymphadenopathy. Franny: Clear. Axilla: Clear. ABDOMEN AND PELVIS: Liver: There are no focal hepatic masses identified in this arterial phase study. Gallbladder: Unremarkable. Spleen: Normal in size and attenuation. Pancreas: Unremarkable. Adrenal glands: Unremarkable. Kidneys: There is symmetric renal cortical enhancement. The kidneys are normal in size without hydronephrosis. Bowel: There are no transition zones indicate bowel obstruction. The appendix appears normal. There is no acute diverticulitis. Peritoneum: There is no intraperitoneal free air or abdominal ascites. Abdominal aorta: There is no evidence of abdominal aortic aneurysm or dissection. There is no evidence of celiac, superior mesenteric, or renal artery stenosis. 2 left renal arteries are visualized. There is a single right renal artery. Inferior mesenteric artery appears patent. There is no common or external iliac artery stenosis. Adenopathy: None. Pelvic viscera: The bladder, and pelvic viscera are unremarkable. Skeletal structures: No destructive osseous lesions are seen. IMPRESSION: 1. No acute findings 2. No evidence of thoracic or abdominal aortic aneurysm or dissection 3. No evidence of superior mesenteric, celiac, or renal artery stenosis 4. No evidence of bowel obstruction. No evidence of free air 5. Normal appendix Electronically signed by: Yakov Martínez M.D. 05/21/2016 7:41 PM Dictated Date/Time: 05/21/2016 7:35 PM
[2016-05-21] MEDS: CITALOPRAM 20 MG TAB PO SCH (20:56)
[2016-05-21] MEDS: TRAZODONE HCL 100 MG TAB PO SCH (20:57)
--- NOTE | 2016-05-21 23:24 | Progress Note ---
Subjective Date of Service: May 21, 2016. Subjective Pt evaluation today including: conversation w/ patient, physical exam, chart review, lab review, review of studies (echo), review of inpatient medication list Pain: has had 2 episodes of chest discomfort today - same location, comes & goes PO Intake: normal Voiding: no voiding problems tele stable overnight patient denies any burping, belching, reflux symptoms denies any positional nature of the pain NOT improved with sitting forward NOT pleuritic in quality Problem List Medical Problems: (1) Hypertensive urgency Status: Acute (2) Substernal chest pain Status: Acute Review of Systems Constitutional: No fever Respiratory: No cough, No dyspnea on exertion, No shortness of breath Cardiac: + chest pain, + see HPI, No PND, No edema, No orthopnea Abdomen: No pain Objective Vital Signs Date Time Temp Pulse Resp B/P Pulse Ox O2 Delivery O2 Flow Rate FiO2 05/21/16 19:46 37.0 69 20 150/92 97 Room Air 05/21/16 19:45 Room Air 05/21/16 16:00 Room Air 05/21/16 15:14 37.0 67 20 125/80 96 05/21/16 12:10 Room Air 05/21/16 11:42 36.9 94 18 135/88 96 05/21/16 08:15 Room Air 05/21/16 07:31 36.6 67 16 138/78 96 Room Air 05/21/16 06:18 122/79 05/21/16 05:50 37.0 63 18 135/87 95 Room Air 05/21/16 04:05 Room Air 05/21/16 03:35 36.6 57 18 111/82 96 Room Air 05/21/16 00:05 Room Air 05/20/16 23:18 36.6 77 18 107/62 92 Room Air Physical Exam General Appearance: no apparent distress ENT: pharynx normal Neck: no JVD Respiratory/Chest: lungs clear, no respiratory distress, no accessory muscle use, + pertinent finding (chest tenderness to palpation over left chest wall near the sternal junction) Cardiovascular: regular rate, rhythm, no gallop, no murmur Abdomen: normal bowel sounds, non tender, soft, no organomegaly Extremities: no pedal edema Laboratory Results Last 24 Hours Test 05/21/16 01:38 05/21/16 06:26 Total Creatine Kinase 931 U/L Creatine Kinase MB 2.8 ng/ml Creatine Kinase MB Ratio 0.3 Troponin I < 0.015 ng/ml White Blood Count 4.90 K/uL Red Blood Count 4.86 M/uL Hemoglobin 15.1 g/dL Hematocrit 43.6 % Mean Corpuscular Volume 89.7 fL Mean Corpuscular Hemoglobin 31.1 pg Mean Corpuscular Hemoglobin Concent 34.6 g/dl RDW Standard Deviation 41.5 fL RDW Coefficient of Variation 12.7 % Platelet Count 136 K/uL Mean Platelet Volume 12.7 fL Activated Partial Thromboplast Time 58.3 SECONDS Partial Thromboplastin Ratio 2.2 Sodium Level 142 mmol/L Potassium Level 3.9 mmol/L Chloride Level 105 mmol/L Carbon Dioxide Level 27 mmol/L Anion Gap 10.0 mmol/L Blood Urea Nitrogen 12 mg/dl Creatinine 1.10 mg/dl Est Creatinine Clear Calc Drug Dose 88.9 ml/min Estimated GFR () 92.2 Estimated GFR (Non- 79.5 BUN/Creatinine Ratio 10.9 Random Glucose 77 mg/dl Calcium Level 8.4 mg/dl Triglycerides Level 89 mg/dl Cholesterol Level 197 mg/dl HDL Cholesterol 49 mg/dl LDL Cholesterol, Calculated 130 mg/dl VLDL Cholesterol, Calculated 18 mg/dl Cholesterol/HDL Ratio 4.0 Assessment and Plan 46yo male: 1. ongoing, intermittent chest pain in setting of questionable CAD dx in the mid at [facility] and abnormal EKG - echo w/o wall motion abnormality. Troponin did not rise despite rise in CPK. Seen by cardiology today and plan for stress echo in AM. Given his prior h/o DVT will check CTA chest/abd/pelvis to r/o PE and r/o dissection. If negative then proceed with stress test. If pain recurs try toradol IV x 1. Remains on heparin drip for unstable angina; defer to cardiology about discontinuation. Cont aspirin. 2. hypertensive emergency - resolved, BPs stable on home medication regimen. 3. rhabdomyolysis - etiology?? Hydrate, repeat CPK am. 4. hyperlipidemia - deserves statin agent, but defer on such until CPK is normal. 5. DVT proph - heparin infusion. 6. intellectual disability 7. LVH - deserves beta ria, but HR too low for such more than likely. 8. seizure d/o - cont depakote. No reported seizures at the care home nor here at [facility]. Continued [facility] stay due to: multiple IV medications needed Discharge planning: other (care home )
--- NOTE | 2016-05-21 23:29 | CARDIOLOGY CONSULTATION ---
DATE OF CONSULTATION: 05/21/2016 REQUESTING PHYSICIAN: Dr. Rodriguez. REASON FOR CONSULTATION: Chest pain. HISTORY OF PRESENT ILLNESS: Mr. Carpio is a 46-year-old male with reported ID back in 1993, hypertension, prior seizure disorder, history of prior DVT in 1991, who was admitted yesterday in the setting of new onset chest pain. The patient is currently an inmate at [facility]. 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 The patient states that he was in his usual state of health until in the middle of the night developed sharp 8/10 chest pain, located on the left side of his chest. This was not associated with any nausea, vomiting, or diaphoresis. The pain did not radiate to anywhere. It was not associated with any significant shortness of breath or palpitations. He presented to the [facility] where there were questionable new EKG changes, which prompted him to be taken to the Emergency Department. In the ED, he was initially hypertensive with systolic blood pressures to the 190s. He was treated with aspirin, nitro and started on nitro paste with improvement in blood pressure and chest pain. Overnight his chest pain has largely resolved. He has had no events on telemetry. Today, he states that he is partially chest pain free. He does endorse some mild chest discomfort with deep inspiration. Otherwise, is feeling at his baseline. More recently, prior to the acute event, he states that he has been feeling well. Denies any chest pain with exertion or exercise. Does state that he limits his exercise due to fear of not "overdoing it." He states that previously while lifting weights, he has developed chest pain where he dropped a barbell on his chest and that prompted him to have a seizure. Since admission, the patient's troponins have been negative x3. His initial EKG showed sinus rhythm with nonspecific inferior lateral ST changes and questionable new anterolateral T-wave inversions. These have persisted on subsequent EKGs since admission. PAST MEDICAL HISTORY: 1. History of reported coronary artery disease. The patient states he had an ID or "complete heart block." He does state he underwent a heart catheterization. This was reportedly done at [facility]. Outside hospital records obtained and have been reviewed, no report of cardiac catheterization or complete heart block. Has had prior admissions for chest pain. This has been thought to be musculoskeletal in the past. Per report, there have been anterolateral ST changes in the past. 2. Hypertension. 3. History of left lower extremity DVT in 1991 -- prompted by long car travel. 4. History of seizure disorder. 5. Anxiety and depression with prior suicidal ideation requiring hospitalization. FAMILY HISTORY: Father had severe diabetes, complicated by lower extremity wounds and eventual at an early age from diabetes related complications. Denies significant family history of premature coronary artery disease or sudden cardiac . SOCIAL HISTORY: Reports he is a never smoker, currently an inmate at [facility]. ALLERGIES: No known drug allergies. HOME MEDICATIONS: Include aspirin 81, Celexa 20, Depakote 500 mg b.i.d., lisinopril 40 and trazodone 100 at bedtime. REVIEW OF SYSTEMS: A 10-point review of systems completed and otherwise negative unless stated in HPI. PHYSICAL EXAMINATION: VITAL SIGNS: Temperature 36.9, pulse 94, blood pressure 135/88, satting 96% on room air. GENERAL: The patient appears comfortable in no acute distress. HEENT: Sclerae are anicteric. Oropharynx is clear. Mucous membranes are moist. NECK: Supple with no lymphadenopathy. He has no jugular venous distention. LUNGS: Clear to auscultation bilaterally. HEART: He has a regular rate and rhythm with no appreciable murmurs, rubs or gallops. His chest wall is nontender to palpation. ABDOMEN: Soft, nontender, nondistended with positive bowel sounds. EXTREMITIES: Warm. He has intact distal pulses. He has no significant lower extremity edema. SKIN: Shows no rashes or lesions. NEUROLOGIC: Cranial nerves II-XII are grossly intact and the remainder of exam is nonfocal. PSYCHIATRIC: He is alert and oriented x3, some evidence of mild cognitive impairment but mood and affect are appropriate. LABORATORY DATA: Sodium 142, potassium 3.9, BUN 12, creatinine of 1.1. His total cholesterol was 197, triglycerides 89, HDL 49, LDL 130. His cardiac enzymes have been negative x3. His CK was mildly elevated at 1070. INR 1.1. White blood cell count 4.9, hemoglobin 15.1, platelets of 136. IMAGING: Chest x-ray showed no acute cardiopulmonary process. EKG showed a sinus rhythm with ventricular rate of 62 with first-degree AV block, nonspecific ST changes in the inferolateral leads as well as T-wave inversions in V2 through V5, more prominent than previously noted on prior EKG from 2015. Telemetry reviewed. No acute events overnight. Echo completed this morning, shows normal LV function with an EF of 60-65%. There are no regional wall motion abnormalities. No significant valvular pathology. Intracardiac filling and pressures appear to be normal. IMPRESSION AND PLAN: 1. Possible unstable angina. 2. Hypertension. 3. History of deep venous thrombosis. The patient here with acute onset of chest pain in the setting of significantly elevated blood pressures to the 190s. Chest pain largely resolved except for a pleuritic component with controlled blood pressure and topical nitrates. I have reviewed patient's recent echo, EKG, telemetry and prior outside hospital records. At this point, I feel the risk of ACS is elevated, although based on his presentation, the risk for adverse cardiac event is relatively low. HERBIE score of approximately 60. In that setting, I feel that further risk stratification is warranted, but would proceed with a stress test as opposed to cardiac catheterization. We will plan for exercise stress echo tomorrow with further recommendations pending findings. In the interim, I agree with continuing on aspirin, heparin and SANDEEP inhibitor. I would start on low dose beta ria, metoprolol 25 b.i.d. and continue nitro paste. If he were to develop severe uncontrolled pain overnight, please contact us as he may require more urgent intervention. Thank you for allowing us to participate in the care of this patient. Please contact with any questions. ZOFIA
[2016-05-21] MEDS: SODIUM CHLORIDE 0.9% 1000ML 1,000 ML IV SCH (23:44)
[2016-05-22 04:00] VITALS: BP 154/107; PULSE 73; TEMP 36.8; O2SAT 94
[2016-05-22] MEDS: NITROGLYCERIN OINT 2% 1GM PACKET EXT SCH ×2 (06:00→11:52)
[2016-05-22 06:12] LABS: BUN/CREATININE RATIO 14.8 (10-20); CALCIUM 8.1 mg/dl (8.5-10.1); POTASSIUM 3.9 mmol/L (3.5-5.1)
[2016-05-22 07:43] LABS: PARTIAL THROMBOPLASTIN RATIO 1.8
[2016-05-22 07:53] VITALS: BP_SYST 153; BP_SYST 168; BP_DIAS 101; BP_DIAS 115; PULSE 65; TEMP 36.5; O2SAT 97
[2016-05-22] MEDS: ASPIRIN 81 MG ECTAB PO SCH (08:06)
[2016-05-22] MEDS: DIVALPROEX SODIUM 500 MG DELAY RELEASE TAB PO SCH (08:06)
[2016-05-22] MEDS: LISINOPRIL 40 MG TAB PO SCH (08:06)
[2016-05-22] MEDS: SODIUM CHLORIDE 0.9% 1000ML 1,000 ML IV SCH (08:07)
[2016-05-22] MEDS ORDERED: HEPARIN IV BOLUS 3,000 UNIT in SYRINGE 0 ML IV ONE (08:30)
[2016-05-22] MEDS ORDERED: NURSING VERBAL MED ORDER ONE (08:30)
--- NOTE | 2016-05-22 08:38 | Progress Note ---
Subjective Date of Service: May 22, 2016. Problem List Medical Problems: (1) Hypertensive urgency Status: Acute (2) Substernal chest pain Status: Acute Objective Vital Signs Date Time Temp Pulse Resp B/P Pulse Ox O2 Delivery O2 Flow Rate FiO2 05/22/16 07:53 36.5 65 16 168/115 97 Room Air 153/101 05/22/16 04:05 Room Air 05/22/16 04:00 36.8 73 20 154/107 94 Room Air 05/22/16 00:05 Room Air 05/21/16 23:35 36.8 55 16 142/95 94 Room Air 05/21/16 19:46 37.0 69 20 150/92 97 Room Air 05/21/16 19:45 Room Air 05/21/16 16:00 Room Air 05/21/16 15:14 37.0 67 20 125/80 96 05/21/16 12:10 Room Air 05/21/16 11:42 36.9 94 18 135/88 96 Laboratory Results Last 24 Hours Test 05/22/16 05:15 05/22/16 07:17 Sodium Level 142 mmol/L Potassium Level 3.9 mmol/L Chloride Level 106 mmol/L Carbon Dioxide Level 27 mmol/L Anion Gap 9.0 mmol/L Blood Urea Nitrogen 15 mg/dl Creatinine 1.00 mg/dl Est Creatinine Clear Calc Drug Dose 97.8 ml/min Estimated GFR () 103.4 Estimated GFR (Non- 89.2 BUN/Creatinine Ratio 14.8 Random Glucose 73 mg/dl Calcium Level 8.1 mg/dl Total Creatine Kinase 501 U/L Activated Partial Thromboplast Time 45.7 SECONDS Partial Thromboplastin Ratio 1.8 Assessment and Plan 46yo male chest pain and lateral t wave inversions on ecg, no enzyme changes on serology intermittent chest pain in setting of questionable CAD dx in the mid at [facility] and abnormal EKG - echo w/o wall motion abnormality. cardiology plans for stress echo Given his prior h/o DVT performed CTA chest/abd/pelvis to r/o PE and r/o dissection. negative hypertensive emergency - resolved, BPs stable on home medication regimen. hyperlipidemia - deserves statin agent, but defer with isolated CPK elevation( no associatd MB or troponin rise) DVT proph - heparin seizure d/o - stabe continue depakote, level checked is low. Continued [facility] stay due to: multiple IV medications needed Discharge planning: other ([facility] )
[2016-05-22] MEDS ORDERED: LPT40 PO (11:11)
[2016-05-22] MEDS ORDERED: PRLSR20 PO (11:11)
--- NOTE | 2016-05-22 11:12 | Discharge Instructions ---
Discharge Instructions Admission Reason for Admission: Hypertensive Emergency, Unstable Angina Discharge Discharge Diagnosis / Problem: non cardiac chest pain Discharge Goals Goal(s): Diagnostic testing, Therapeutic intervention Activity Recommendations Activity Limitations: resume your previous activity . Current Hospital Diet Patient's current hospital diet: AHA Diet (Heart Healthy) Discharge Diet Recommended Diet: Regular Diet Pending Studies Studies pending at discharge: no Laboratory Results since pt has know CAD statin was started, and if continued will need appropriate follow up blood testing VPA level was low but is stable epilepsy no dose changes were made Lipid Panel Test 05/21/16 06:26 Range/Units Triglycerides Level 89 0-150 mg/dl Cholesterol Level 197 0-200 mg/dl HDL Cholesterol 49 mg/dl Cholesterol/HDL Ratio 4.0 LDL Cholesterol, Calculated 130 mg/dl Item Value Date Time Valproic Acid (Depakene) Level 38 mcg/ml L 05/20/16 1213 Medical Emergencies . Who to Call and When: Medical Emergencies: If at any time you feel your situation is an emergency, please call 911 immediately. . Non-Emergent Contact Non-Emergency issues call your: Primary Care Provider . . "Provider Documentation" section prepared by Humberto Garcia. VTE Core Measure Inpt VTE Proph given/why not?: Other Anticoagulation (low dose heparin drip), T.E.DLorene Stockings, SCD's
[2016-05-22] MEDS ORDERED: GI COCKTAIL PO ONE (11:15)
[2016-05-22] MEDS ORDERED: ALUMINUM/MAGNESIUM SUSP 18 ML, LIDOCAINE HCL 2% VISCOUS SOLN 6 ML, BARCODE IDENTIFIER 1 EA PO SCH ×2 (11:30)
[2016-05-22 11:53] VITALS: BP 153/101; PULSE 65; TEMP 36.5; O2SAT 97
--- NOTE | 2016-05-22 12:16 | EXERCISE STRESS ECHO ---
*NOTICE TO RECEIVING LIBERTARIAN AGENCY This information is strictly Confidential and protected under [place] law. [place] law prohibits you from making any further disclosure of this information unless further disclosure is expressly permitted by the written consent of the person to whom it pertains or is authorized by law. A general authorization for the release of medical or other information is not sufficient for this purpose. Hospital accepts no responsibility if the information is made available to any other person, INCLUDING THE PATIENT. Interpretation Summary * Name: NEFTALY MCKEON [id number] Study Date: 05/22/2016 08:29 AM BP: 153/96 mmHg * Patient Location: [facility]\S\N283\S\2 HR: 70 * : 1970 (M/d/yyyy) Gender: Male Height: 68 in * Age: 46 yrs Ethnicity: AA Weight: 191 lb * Ordering Physician: Gato Ramirez * Referring Physician: Alesia ORDONEZ * Performed By: Ofelia Saldana RCS * * Reason For Study: CHEST PAIN / H/O IL * BSA: 2.0 m2 * -- Conclusions -- * 1. Negative exercise stress echo for ischemia at 93% MPHR. * 2. Negative stress ECG for ischemia. * 3. Normal functional capacity. Exercised 7:20 min, achieved 9 METS. Normal blood pressure response to exercise. Mild chest pain, improved with continued exercise. * 4. Normal resting LV function, moderate LVH. See Echo Report from 05/21/2016 for full details. Procedure Details * ECHOEX, CPT #24779 Left Ventricular Findings with Stress * This was essentially a normal study. Left Ventricle * The left ventricle is grossly normal size. * There is moderate concentric left ventricular hypertrophy. * Ejection Fraction = 60-65%. * The left ventricular wall motion is normal at rest. * The left ventricular ejection fraction increases normally with stress. The left ventricular end-systolic cavity size reduces post-stress (normal response). The left ventricular wall motion with stress is normal. * No regional wall motion abnormalities noted. Stress Parameters * Normal sinus rhythm, inferolateral T-wave inversions * The stress portion of this study was personally supervised by the undersigned interpreting physician. * Rest heart rate was '70' BPM. * Rest blood pressure was '153/96' * Maximum heart rate achieved was 162 bpm. * Maximum heart rate was 93 % of maximum age-predicted heart rate. * Maximum blood pressure was '196/76' * Total exercise time was '07:20' * Maximum exercise MET level achieved was '9.00' METS * Maximum treadmill speed was '3.40' miles per hour. * Maximum treadmill elevation was '14.00'% grade. Left Ventricular Findings with Stress * The study was technically adequate.
--- NOTE | 2016-05-22 12:21 | Cardiology Follow-Up ---
Subjective Subjective Date of Service: May 22, 2016. Additional Details: Feeling well. Mild intermittent pleuritic chest pain. No other new complaints. No events on telemetry Problem List Medical Problems: (1) Hypertensive urgency Status: Acute (2) Substernal chest pain Status: Acute Review of Systems Constitutional: No fever Respiratory: No cough, No dyspnea on exertion, No shortness of breath Cardiac: + chest pain, No PND, No edema, No orthopnea Abdomen: No pain Heme: No abnormal bleeding/bruising Endo: No fatigue Skin: No rash Objective Vital Signs Last Vital Signs Documentation Date Time Temp Pulse Resp B/P Pulse Ox O2 Delivery O2 Flow Rate FiO2 05/22/16 11:53 36.5 65 16 97 Room Air 05/22/16 07:53 168/115 153/101 Physical Exam: General Appearance: no apparent distress ENT: pharynx normal Neck: no JVD Respiratory/Chest: lungs clear, no respiratory distress, + pertinent finding ( chest tenderness to palpation over left chest wall near the sternal junction) Cardiovascular: regular rate, rhythm, no gallop, no murmur Abdomen: normal bowel sounds, non tender, soft Extremities: no pedal edema Skin: no rash Assessment and Plan 1. Chest Pain 2. Hypertensive urgency 3. Abnormal ECG Stress test completed. Negative for ischemia. Low risk test Minimal residual chest pain, more pleuritic in nature. Feel unlikely to be related to cardiac ischemia. Has at least moderate LVH on echo and suspect ECG changes related to LVH/ hypertension--> recommend improved blood pressure control as an outpatient. From a cardiac standpoint Ok for discharge. Continued [facility] stay due to: multiple IV medications needed Discharge planning: other (skilled nursing ) Medications: Current Inpatient Medications Medications (Trade) Dose Ordered Sig/Maegan Route Start Time Stop Time Status Last Admin Dose Admin Acetaminophen (Tylenol Tab) 650 mg Q4H PRN PO 05/20/16 13:30 06/19/16 13:29 05/21/16 21:00 650 MG Al Hydrox/Mg Hydrox/Simethicone (Maalox Max Susp) 15 ml Q4H PRN PO 05/20/16 13:30 06/19/16 13:29 Magnesium Hydroxide (Milk Of Magnesia Susp) 30 ml Q12H PRN PO 05/20/16 13:30 06/19/16 13:29 Ondansetron HCl (Zofran Inj) 4 mg Q6H PRN IV 05/20/16 13:30 06/19/16 13:29 Polyethylene (Miralax Powder Packet) 17 gm DAILY PRN PO 05/20/16 13:30 06/19/16 13:29 Citalopram Hydrobromide (celeXA TAB) 20 mg HS PO 05/20/16 21:00 06/19/16 20:59 05/21/16 20:56 20 MG Divalproex Sodium (Depakote Delay Rel Tab) 500 mg BID PO 05/20/16 21:00 06/19/16 20:59 05/22/16 08:06 500 MG Lisinopril (Zestril Tab) 40 mg QAM PO 05/21/16 09:00 06/20/16 08:59 05/22/16 08:06 40 MG Trazodone HCl (Desyrel Tab) 100 mg HS PO 05/20/16 21:00 06/19/16 20:59 05/21/16 20:57 100 MG Nitroglycerin (Nitroglycerin 2% Oint) 1 inch Q6 EXT 05/20/16 17:00 06/19/16 16:59 05/22/16 06:00 1 INCH Aspirin (Ecotrin Tab) 81 mg QAM PO 05/21/16 09:00 06/20/16 08:59 05/22/16 08:06 81 MG Atorvastatin Calcium (Lipitor Tab) 40 mg QAM PO 05/21/16 09:00 06/20/16 08:59 Future Hold 05/21/16 08:08 40 MG Hydralazine HCl (HydrALAZINE INJ) 10 mg Q6H PRN IV. 05/20/16 14:15 06/19/16 14:14 Heparin Sodium (Porcine) (Heparin 100 Unit/ml 5ml Flush) 5 ml PRN PRN IV 05/20/16 16:45 06/19/16 16:44 05/20/16 18:23 5 ML Heparin Sodium (Porcine) (Heparin 10 Unit/ ml 5 ml Flush) 5 ml PRN PRN FLUSH 05/21/16 02:00 06/20/16 01:59 05/22/16 05:17 5 ML Ioversol 100 ml 100 ml UD PRN IV 05/21/16 18:30 05/25/16 18:29 Sodium Chloride 1,000 ml @ 125 mls/hr Q8H IV 05/21/16 23:30 06/20/16 23:29 05/22/16 08:07 125 MLS/HR Al Hydroxide/Mg Hydroxide/ Lidocaine HCl/ Barcode (Maalox Susp/ Viscous Lidocaine 2% Soln) TODAY@1130 PO 05/22/16 11:30 05/22/16 15:00 05/22/16 11:46 24 ML Lab Results: 05/22/16 05:15 Test 05/22/16 05:15 05/22/16 07:17 Anion Gap 9.0 mmol/L (3-11) Est Creatinine Clear Calc Drug Dose 97.8 ml/min Estimated GFR () 103.4 Estimated GFR (Non- 89.2 BUN/Creatinine Ratio 14.8 (10-20) Calcium Level 8.1 mg/dl (8.5-10.1) Total Creatine Kinase 501 U/L (39-308) Activated Partial Thromboplast Time 45.7 SECONDS (21.0-31.0) Partial Thromboplastin Ratio 1.8
--- NOTE | 2016-05-22 13:50 | Medical Student: [facility] ---
Discharge Summary Admission Date: May 20, 2016 at 13:24 Discharge Date: May 22, 2016 Discharge Disposition: Home ([facility]) Principal Diagnosis: non-cardiac chest pain Problems/Secondary Diagnoses: history of seizures, htn, depression/anxiety, TN s/p cardiac catheterization, intellectual impairment Medications: Reported Home Medications Medications Dose Route/Sig Max Daily Dose Days Date Category Dose Instructions Prilosec (Omeprazole) 20 Mg Capcr 20 Mg PO DAILY 05/22/16 Rx Atorvastatin Calcium (Atorvastatin) 40 Mg Tab 40 Mg PO QAM 05/22/16 Rx please perform appropriate lft testing this is for elevated cholesterol Trazodone (Trazodone HCl) 50 Mg Tab 100 Mg PO HS 05/20/16 Reported *CRUSH Prinivil (Lisinopril) 40 Mg Tab 40 Mg PO QAM 05/20/16 Reported Depakote Delay Rel (Divalproex Sodium) 500 Mg Tab 500 Mg PO BID 05/20/16 Reported Celexa (Citalopram Hydrobromide) 20 Mg Tab 20 Mg PO HS 05/20/16 Reported *CRUSH Aspirin Ec (Aspirin) 81 Mg Tab 81 Mg PO QAM 05/20/16 Reported Discharge Exam Review of Systems: Constitutional: No chills, No fever, No sweats Respiratory: No cough, No shortness of breath, No wheezing Cardiovascular: + chest pain Abdomen: No constipation, No diarrhea, No nausea, No pain Physical Exam: General Appearance: WD/WN, no apparent distress Eyes: PERRL, EOMI ENT: hearing grossly normal, pharynx normal Neck: supple, no JVD Respiratory/Chest: chest non-tender, lungs clear, normal breath sounds Cardiovascular: regular rate, rhythm, no edema, no gallop, no JVD, no murmur Abdomen / GI: non tender, soft, no organomegaly Extremities: no pedal edema Neurologic/Psychiatric: alert, normal mood/affect, oriented x 3 Skin: normal color, no rash Lymphatic: no adenopathy Hospital Course 46 yo male with a reported history of TN in 1993 with cardiac catheterization, seizure disorder, anxiety/depression, who presented with left-sided chest pain while sleeping. Cardiac workup (Troponins, EKG, stress echo) showed no evidence of acute myocardial ischemia. Patient was given a GI cocktail with evidence of improvement. Upon admission, his blood pressure was highly elevated and he was given hydralazine. He has since been having more reasonable blood pressure readings, but may need to have his medication adjusted. His cholesterol was found to be borderline high (total 197) and with his history of TN, we should consider placing him on a high intensity statin for risk reduction. Total Time Spent: Greater than 30 minutes This includes examination of the patient, discharge planning, medication reconciliation, and communication with other providers. Discharge Instructions Please refer to the electronic Patient Visit Report (Discharge Instructions) for additional information. Follow-Up F/u with [facility] medical staff
--- NOTE | 2016-05-22 18:08 | Discharge Summary ---
Discharge Summary Admission Date: May 20, 2016 at 13:24 Discharge Date: May 22, 2016 Discharge Disposition: Home ([facility]) Principal Diagnosis: non cardiac chest pain, chronic ECG changes Procedures: stress test and cardiology consult Dr Jose Ramirez Medication Reconciliation New Medications: Omeprazole (Prilosec) 20 Mg Capcr 20 MG PO DAILY, #90 CAP Atorvastatin (Atorvastatin Calcium) 40 Mg Tab 40 MG PO QAM, #30 TAB 6 Refills please perform appropriate lft testing this is for elevated cholesterol Continued Medications: Aspirin (Aspirin Ec) 81 Mg Tab 81 MG PO QAM Citalopram Hydrobromide (Celexa) 20 Mg Tab 20 MG PO HS, TAB *CRUSH Divalproex Sodium (Depakote Delay Rel) 500 Mg Tab 500 MG PO BID, TAB Lisinopril (Prinivil) 40 Mg Tab 40 MG PO QAM, TAB Trazodone Hcl (Trazodone) 50 Mg Tab 100 MG PO HS, TAB *CRUSH Discharge Exam Review of Systems: Constitutional: No chills, No fever Respiratory: No cough, No dyspnea on exertion, No shortness of breath, No sputum Cardiovascular: + chest pain, No edema, No orthopnea Abdomen: No diarrhea, No nausea, No pain, No vomiting Genitourinary - Male: No dysuria, No hematuria Neurologic: No memory loss, No paralysis, No weakness Psychiatric: No anhedonism, No depression symptoms Physical Exam: General Appearance: WD/WN, no apparent distress Neck: supple, no JVD Respiratory/Chest: chest non-tender, lungs clear, normal breath sounds Cardiovascular: regular rate, rhythm, no murmur, + pertinent finding (still with chest pain, unchanging with movement or exam) Abdomen / GI: normal bowel sounds, non tender, soft Extremities: no pedal edema, normal range of motion Neurologic/Psychiatric: alert, oriented x 3 Hospital Course 46yo male chest pain and lateral t wave inversions on ecg, no enzyme changes on serology intermittent chest pain in setting of questionable CAD dx in the mid 1990s at [facility] and abnormal EKG - echo w/o wall motion abnormality. stress echo negative for inducible RWMA or suggestion of reversable defect Given his prior h/o DVT performed CTA chest/abd/pelvis to r/o PE and r/o dissection. negative hypertensive emergency - resolved, BPs stable on home medication regimen. hyperlipidemia - deserves statin agent, but defer with isolated CPK elevation( no associated MB or troponin rise) seizure d/o - stable continue depakote, level checked is low. Total Time Spent: Greater than 30 minutes This includes examination of the patient, discharge planning, medication reconciliation, and communication with other providers. Discharge Instructions Please refer to the electronic Patient Visit Report (Discharge Instructions) for additional information.
== END 2016-05-22 13:33 | DRG 305 ==
LOC: ENRESERVDT → ENRESERVTM → EDBD 08:42 → C.EDB 08:45 → C.MED 13:24
PROVIDERS: ADMIT Internal Medicine; ATTEND Internal Medicine
DX: I16.1 Hypertensive emergency (principal); R07.89 Other chest pain; M62.82 Rhabdomyolysis; I25.10 Atherosclerotic heart disease of native coronary artery without angina pectoris; F41.9 Anxiety disorder, unspecified; F32.9 Major depressive disorder, single episode, unspecified; I10 Essential (primary) hypertension; Z79.82 Long term (current) use of aspirin; I25.2 Old myocardial infarction; G40.909 Epilepsy, unspecified, not intractable, without status epilepticus; G47.00 Insomnia, unspecified; F79 Unspecified intellectual disabilities; E78.5 Hyperlipidemia, unspecified

== ENCOUNTER 2016-09-08 13:35 | Emergency (ER) | payer OTHER ==
[~2016-09-08] VITALS: Ht 172.7 cm; Wt 86.0 kg
[~2016-09-08 13:35] MED LIST: ASPI81TA28 PO; CITA20TA9 PO; DIVA500T5 PO; LISI40TA PO; LPT40 PO; PRLSR20 PO; TRAZ50TA35 PO
[2016-09-08 13:40] VITALS: TEMP 36.7; Ht 172.7 cm; Wt 86.0 kg
--- NOTE | 2016-09-08 15:13 | DIAGNOSTIC IMAGING REPORT ---
CHEST ONE VIEW PORTABLE CLINICAL HISTORY: eval for Pnea dyspnea COMPARISON STUDY: 05/21/2016 FINDINGS: The bones soft tissues and hemidiaphragms are normal. The cardiomediastinal silhouette is normal. The lungs are clear. The pulmonary vasculature is normal. IMPRESSION: Negative chest. Electronically signed by: Barry Acuna M.D. 09/08/2016 3:11 PM Dictated Date/Time: 09/08/2016 3:11 PM
[2016-09-08] MEDS ORDERED: AMLO-110 PO (15:41)
[2016-09-08 16:00] LABS: BASO % 0.2 %; BASO ABS # 0.01 K/uL (0-0.2); COMPLETE YES; EOS % 0.6 %; HEMATOCRIT 45.1 % (42-52); IG% 0.2 %; LYMPH % 36.8 %; LYMPH ABS # 1.79 K/uL (1.2-3.4); MEAN CELL VOLUME 92.2 fL (80-100); MEAN CORPUSCULAR HEMOGLOBIN 30.7 pg (25-34); MEAN CORPUSCULAR HGB CONC 33.3 g/dl (32-36); MEAN PLATELET VOLUME 12.1 fL (7.4-10.4); MONO % 15.8 %; NEUT % 46.4 %; PLATELET COUNT 170 K/uL (130-400); RED BLOOD COUNT 4.89 M/uL (4.7-6.1); WHITE BLOOD COUNT 4.86 K/uL (4.8-10.8)
[2016-09-08 16:17] LABS: BUN/CREATININE RATIO 9.5 (10-20); POTASSIUM 4.3 mmol/L (3.5-5.1)
[2016-09-08 16:22] LABS: INR 1.1 (0.9-1.1); PROTHROMBIN TIME (PATIENT) 11.4 SECONDS (9.0-12.0)
[2016-09-08] MEDS ORDERED: OPTIRAY 320 IV PRN (16:45)
--- NOTE | 2016-09-08 17:13 | DIAGNOSTIC IMAGING REPORT ---
CHEST CTA for PULMONARY ARTERIES CT DOSE: 461.47 mGy.cm HISTORY: Left-sided chest pain. TECHNIQUE: Multiaxial CT images of the chest were performed following the intravenous administration of contrast to evaluate the pulmonary arteries. Maximal intensity projection images were also obtained. COMPARISON STUDY: Chest CTA 05/21/2016. FINDINGS: There is a normal caliber thoracic aorta with no evidence for dissection. There is no evidence for pulmonary embolus. No pleural effusions. No pneumothorax. The liver and spleen are unremarkable. No mediastinal or hilar lymphadenopathy. The central airways are patent. No change in asymmetric enlargement within the left pectoralis muscle in comparison to the right. This could be due to old injury/postoperative change given the right axillary surgical clips. Punctate calcified granuloma within the base of the lingula. No focal lung consolidations to suggest pneumonia. Punctate calcified granuloma within the right upper lobe anteriorly. Small bibasilar linear densities are nonspecific but favor subsegmental atelectasis or scarring. This is similar to the prior study. IMPRESSION: No evidence for pulmonary embolus. No cement change from the prior study. Electronically signed by: Omar Lees M.D. 09/08/2016 5:11 PM Dictated Date/Time: 09/08/2016 5:05 PM
[2016-09-08 17:44] VITALS: BP 155/116; PULSE 53; O2SAT 98
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
== END 2016-09-08 17:57 | disposition home or self-care (01) ==
LOC: C.EDB 13:37
DX: R07.9 Chest pain, unspecified (principal); I25.2 Old myocardial infarction; Z86.718 Personal history of other venous thrombosis and embolism; I10 Essential (primary) hypertension; Z82.5 Family history of asthma and other chronic lower respiratory diseases; Z83.3 Family history of diabetes mellitus; Z79.82 Long term (current) use of aspirin; Z79.899 Other long term (current) drug therapy